=== PATIENT | female | born 1985 | race African-American/Black ===

== ENCOUNTER 2021-08-15 13:12 | Emergency (ER) | payer BC, SELFPAY | END 2021-08-15 14:30 | disposition home or self-care (01) | LOC: CSHERS 13:12 | DX: R20.2 Paresthesia of skin (principal); R29.702 NIHSS score 2; E11.9 Type 2 diabetes mellitus without complications; I10 Essential (primary) hypertension ==

== ENCOUNTER 2022-12-17 19:27 | Emergency (ER) | payer BC, SELFPAY ==
[2022-12-17 21:20] LABS: Bilirubin Neg (Negative); Blood, Urine Negative (Negative); Clarity Clear (Clear); Glucose, Urine (Dipstick) Normal (Negative); Ketone, Urine Negative (Negative); Leukocyte 25 (Negative); Nitrite Negative (Negative); Protein, Urine (Dipstick) 15 mg/dl (Neg-Trace); Urobilinogen Normal mg/dL (Less than 2)
[2022-12-17 21:22] LABS: Pregnancy Test - Urine (BHCG) Negative (Negative)
[2022-12-17 21:23] LABS: Pregu Control Background? CLEAR/WHITE (CLR/WHITE); Pregu Control Bar Appear? YES (CONTROL BAR)
[2022-12-17] MEDS ORDERED: Dexamethasone 10 MG/ML VIAL ONE (21:58)
[2022-12-17 22:11] LABS: CAUTI Indications for Culture Pelvic or flank pain; RBC/HPF None Seen HPF (0-3)
[2022-12-17 22:12] LABS: Bacteria/HPF 1+ HPF (None Seen); Squamous Epithelial 0-3 HPF (0-3); Urine Culture Reflex No No
== END 2022-12-17 22:07 | disposition home or self-care (01) ==
LOC: CSHERS 19:27
DX: M54.2 Cervicalgia (principal); J02.9 Acute pharyngitis, unspecified; M54.50 Low back pain, unspecified; E11.9 Type 2 diabetes mellitus without complications; I10 Essential (primary) hypertension
CPT/HCPCS: 81001; 81025; 87081; 87430; 99283; J1100

== ENCOUNTER 2024-11-08 20:14 | Emergency (ER) | payer SELFPAY ==
[2024-11-08] MEDS ORDERED: hydrALAZINE 20 MG/ML VIAL ONE ×2 (21:02→22:55)
[2024-11-08 21:14] LABS: Hematocrit 37.4 % (34.9-44.5); Hemoglobin 12.3 g/dL (12.0-15.5); Mean Corpuscular Hemoglobin 27.3 pg (27.0-33.0); Mean Corpuscular Volume 83.1 fL (81.6-98.3); Platelet Count 384 10x3/uL (150-450); Red Blood Cell (RBC) Count 4.50 10x6/uL (3.90-5.03); White Blood Cell (WBC) Count 15.02 10x3/uL (3.5-10.5)
[2024-11-08 21:18] LABS: Anion Gap 14 mmol/L (10-20); BUN (Urea Nitrogen) 7 mg/dL (7.0-18.7); Calc. Creatinine Clearance 0 mL/min (70-130); Calcium 8.7 mg/dL (7.8-10.44); Carbon Dioxide 23 mmol/L (22-29); Chloride 103 mmol/L (98-107); Glucose 109 mg/dL (70-105); Potassium 4.1 mmol/L (3.5-5.1); Sodium 136 mmol/L (136-145)
[2024-11-08 21:25] LABS: Troponin I Less than 0.010 ng/mL (< 0.028)
[2024-11-08 21:55] LABS: MDiff Complete? YES; Platelet Adequacy Comment Appears Adequate; RBC Morphology Within Normal Limits
== END 2024-11-08 23:55 | disposition home or self-care (01) ==
LOC: CSHERS 20:14
DX: I16.1 Hypertensive emergency (principal); R42 Dizziness and giddiness; R00.2 Palpitations; E66.9 Obesity, unspecified; E11.9 Type 2 diabetes mellitus without complications; I10 Essential (primary) hypertension
CPT/HCPCS: 80048; 84484; 85025; 93005; 96374; 96376; J0360